=== PATIENT | male | born 2005 | race Caucasian/White ===

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

== ENCOUNTER 2024-05-24 19:43 | Emergency (ER) | payer MEDICAID ==
[~2024-05-24] VITALS: Ht 180.3 cm; Wt 63.5 kg
[2024-05-24 19:55] VITALS: BP_SYST 129; PULSE 83; RESP 20; TEMP 98; O2SAT 98
[2024-05-24] MEDS ORDERED: AUG875 PO (20:43)
[2024-05-24] MEDS ORDERED: AZIT-93 PO (20:43)
[2024-05-24 20:50] VITALS: BP_SYST 129; PULSE 83; RESP 20; TEMP 98; O2SAT 98
== END 2024-05-24 20:50 | disposition home or self-care (01) ==
LOC: SED 19:43
DX: J18.9 Pneumonia, unspecified organism (principal); J45.909 Unspecified asthma, uncomplicated; Z79.82 Long term (current) use of aspirin; Z79.2 Long term (current) use of antibiotics; Z79.899 Other long term (current) drug therapy
CPT/HCPCS: 71046; 99283